=== PATIENT | female | born 1990 | race Caucasian/White ===

== ENCOUNTER 2016-10-08 19:28 | Emergency (ER) | payer OTHER ==
[2016-10-08 20:04] VITALS: PULSE 99; RESP 18
--- NOTE | 2016-10-08 20:35 | ED ---
URI HPI - General Chief Complaint: Upper Respiratory Infection Stated Complaint: Diff breathing Time Seen by Provider: 10/08/16 20:17 Source: patient Mode of arrival: ambulatory Limitations: no limitations - History of Present Illness Initial Comments: 25-year-old female patient presented to emergency department today with complaints of cough and shortness of breath. Patient states that she has been sick with upper respiratory symptoms for the last week. Patient states that she is occasionally wheezy and feels a "rattling" in her chest. She states that she has had chills and sweats, however has not checked her temperature. She states that she has been using her brother's nebulizer with albuterol but it doesn't seem to be helping. Patient states that when she first was sick she did have a sore throat and nasal congestion which has since resolved. She states she was not having clear to white sputum production. States that she has not had any sputum production today, she feels that there but she can't get it up. Patient denies any headache, documented fever, dizziness, weakness, chest pain, abdominal pain, nausea, vomiting, or issues with urination or bowel movements. Denies any sick contacts. Last menstrual period was 2 weeks ago. Denies any chance of . - Related Data Home Medications Medication Instructions Recorded Confirmed Acetaminophen [Tylenol] 500 mg PO ONCE PRN 10/19/15 10/19/15 Previous Rx's Medication Instructions Recorded Albuterol Sulfate [Proair Hfa] 1 - 2 puff INHALATION Q4H PRN #1 10/08/16 inhaler Benzonatate [Tessalon Perles] 200 mg PO Q8H PRN #15 capsule 10/08/16 Allergies Allergy/AdvReac Type Severity Reaction Status Date / Time codeine Allergy Nausea & Verified 10/08/16 20:04 Vomiting Review of Systems ROS Statement: Those systems with pertinent positive or pertinent negative responses have been documented in the HPI. ROS Other: All systems not noted in ROS Statement are negative. Past Medical History Past Medical History: No Reported History History of Any Multi-Drug Resistant Organisms: None Reported Past Surgical History: No Surgical Hx Reported Past Psychological History: Anxiety Smoking Status: Never smoker Past Alcohol Use History: None Reported Past Drug Use History: None Reported General Exam Limitations: no limitations General appearance: alert, in no apparent distress Head exam: Present: atraumatic, normocephalic, normal inspection Eye exam: Present: normal appearance, PERRL, EOMI. Absent: scleral icterus, conjunctival injection, periorbital swelling ENT exam: Present: normal exam, normal oropharynx, mucous membranes moist, TM's normal bilaterally Neck exam: Present: normal inspection. Absent: tenderness, meningismus, lymphadenopathy Respiratory exam: Present: normal lung sounds bilaterally. Absent: respiratory distress, wheezes, rales, rhonchi, stridor Cardiovascular Exam: Present: regular rate, normal rhythm, normal heart sounds. Absent: systolic murmur, diastolic murmur, rubs, gallop, clicks GI/Abdominal exam: Present: soft, normal bowel sounds. Absent: distended, tenderness, guarding, rebound, rigid Extremities exam: Present: normal inspection, full ROM, normal capillary refill. Absent: tenderness, pedal edema, joint swelling, calf tenderness Back exam: Present: normal inspection Neurological exam: Present: alert, oriented X3, CN II-XII intact Psychiatric exam: Present: normal affect, normal mood Skin exam: Present: warm, dry, intact, normal color. Absent: rash Course Vital Signs 10/08/16 20:01 Temperature 96.4 F L Pulse Rate 99 Respiratory 18 Rate Blood Pressure 141/87 O2 Sat by Pulse 97 Oximetry Medical Decision Making - Medical Decision Making 25-year-old male patient presented to emergency department today for evaluation of cough and shortness of breath. Two-view x-ray of the chest was obtained and showed no acute cardiopulmonary process. Patient symptoms are consistent with a viral bronchitis. Patient will be discharged home with a prescription for an albuterol inhaler as well as an antitussive. Patient instructed to follow-up with her primary care physician in one to 2 days for recheck. Instructed to return for any new, worsening, or concerning symptoms. - Radiology Data Radiology results: report reviewed, image reviewed 25-year-old male patient presented with cough and shortness of breath. Two- view x-ray of the chest was obtained and showed no focal airspace opacity, pleural effusion, or pneumothorax. The cardiac silhouette size is within normal limits. The osseous structures are intact. Impression by Dr. Jarvis shows no acute cardiopulmonary process. Disposition Clinical Impression: Viral bronchitis Disposition: HOME SELF-CARE Condition: Good Instructions: Upper Respiratory Infection (ED), Acute Bronchitis (ED) Additional Instructions: Use cough medication as directed. Use inhaler as directed. Follow-up with primary care physician 1-2 days for recheck. Return for any new, worsening, or concerning symptoms. Prescriptions: Albuterol Sulfate [Proair Hfa] 1 - 2 puff INHALATION Q4H PRN #1 inhaler PRN Reason: Wheezing Benzonatate [Tessalon Perles] 200 mg PO Q8H PRN #15 capsule PRN Reason: Cough Referrals: None,Stated [Primary Care Provider] - 1-2 days Time of Disposition: 21:10
--- NOTE | 2016-10-08 20:43 | XR ---
EXAMINATION TYPE: XR chest 2V DATE OF EXAM: 10/08/2016 COMPARISON: 03/23/2007 HISTORY: Cough, chest pain, and shortness of breath. TECHNIQUE: Frontal and lateral views of the chest are obtained. FINDINGS: There is no focal air space opacity, pleural effusion, or pneumothorax seen. The cardiac silhouette size is within normal limits. The osseous structures are intact. IMPRESSION: No acute cardiopulmonary process.
[2016-10-08 21:19] VITALS: BP 129/80; TEMP 99.5
== END 2016-10-08 21:19 | disposition home or self-care (01) ==
LOC: EC 19:28
DX: J20.8 Acute bronchitis due to other specified organisms (principal); Z88.5 Allergy status to narcotic agent
CPT/HCPCS: 71020; 99283

== ENCOUNTER 2018-04-02 05:19 | Emergency (ER) | payer BC ==
--- NOTE | 2018-04-02 05:46 | ED ---
ENT HPI - General Chief complaint: ENT Stated complaint: Weak, Earache, Throat Pain Time Seen by Provider: 04/02/18 05:28 Source: patient, family Mode of arrival: ambulatory Limitations: no limitations - History of Present Illness Initial comments: This patient is a 27-year-old woman who presents to be evaluated for constellation of symptoms. Things began yesterday with sore throat that developed in the morning. She states this was followed shortly thereafter by cough, and then she was experiencing fevers and chills and body aches. She does have a little bit of aching of the ears bilaterally and some mild headache. Patient states that she had taken some [id number]-[id number] flu medication without having much relief, and then she has taken some ibuprofen which also only helped a little bit. complaint: sore throat Onset/Timin -: hour(s) Location: R ear, L ear, throat Severity: moderate Quality: dull Consistency: constant Improves with: none Worsens with: swallowing Associated Symptoms: fever, cough, sore throat - Related Data Previous Rx's Medication Instructions Recorded Promethazine 6.25MG/5Ml [Phenergan 5 ml PO Q4HR PRN #120 ml 04/02/18 Syrup] Allergies Allergy/AdvReac Type Severity Reaction Status Date / Time codeine Allergy Nausea & Verified 04/02/18 05:28 Vomiting Review of Systems ROS Statement: Those systems with pertinent positive or pertinent negative responses have been documented in the HPI. ROS Other: All systems not noted in ROS Statement are negative. Constitutional: Reports: fever, chills ENT: Reports: ear pain, throat pain, congestion. Denies: hearing loss Respiratory: Reports: cough. Denies: dyspnea, wheezes, hemoptysis Cardiovascular: Denies: chest pain, palpitations Gastrointestinal: Denies: abdominal pain, nausea, vomiting, diarrhea Genitourinary: Denies: dysuria, hematuria Musculoskeletal: Denies: back pain Skin: Denies: rash Neurological: Reports: headache Past Medical History Past Medical History: No Reported History History of Any Multi-Drug Resistant Organisms: None Reported Past Surgical History: No Surgical Hx Reported Past Psychological History: Anxiety Smoking Status: Never smoker Past Alcohol Use History: None Reported Past Drug Use History: None Reported General Exam Limitations: no limitations General appearance: alert, in no apparent distress Head exam: Present: atraumatic, normocephalic Eye exam: Present: normal appearance. Absent: scleral icterus, conjunctival injection ENT exam: Present: mucous membranes moist, TM's normal bilaterally, normal external ear exam, other (Cobblestoning of the pharynx. Uvula is midline with no edema) Neck exam: Present: normal inspection, full ROM, lymphadenopathy. Absent: meningismus Respiratory exam: Present: normal lung sounds bilaterally. Absent: respiratory distress, wheezes, rhonchi, stridor Cardiovascular Exam: Present: regular rate, normal rhythm, normal heart sounds GI/Abdominal exam: Present: soft. Absent: distended, tenderness, guarding, mass Extremities exam: Present: normal inspection, normal capillary refill. Absent: pedal edema, calf tenderness Back exam: Present: normal inspection. Absent: CVA tenderness (R), CVA tenderness (L) Neurological exam: Present: alert Skin exam: Present: warm, dry, intact, normal color. Absent: rash Course Vital Signs 04/02/18 05:23 Temperature 100 F H Pulse Rate 133 H Respiratory 20 Rate Blood Pressure 144/86 O2 Sat by Pulse 96 Oximetry Medical Decision Making - Lab Data Lab Results 04/02/18 Range/Units 05:58 Influenza Type A RNA Not Detected (Not Detectd) Influenza Type B (PCR) Not Detected (Not Detectd) Group A Strep Rapid Negative (Negative) Disposition Clinical Impression: Upper respiratory infection Disposition: HOME SELF-CARE Condition: Good Instructions (If sedation given, give patient instructions): Upper Respiratory Infection (ED) Prescriptions: Promethazine 6.25MG/5Ml [Phenergan Syrup] 5 ml PO Q4HR PRN #120 ml PRN Reason: Cough Is patient prescribed a controlled substance at d/c from ED?: No Referrals: None,Stated [Primary Care Provider] - 1-2 days
--- NOTE | 2018-04-02 07:10 | XR ---
EXAM: XR Chest, 2 Views CLINICAL HISTORY: Reason: cough TECHNIQUE: Frontal and lateral views of the chest. COMPARISON: Chest x-ray 10/08/2016 FINDINGS: Lungs: Lungs are clear without focal infiltrates or consolidations. Pleural space: No evidence of pleural effusion or pneumothorax. Heart: Heart size is within normal limits. Mediastinum: Mediastinal structures are unremarkable. Bones/joints: Imaged bony thorax is unremarkable. IMPRESSION: No evidence of acute cardiopulmonary disease.
[2018-04-02] MEDS ORDERED: DEXAMETHASONE 4 MG TAB PO STA (07:12)
[2018-04-02 07:28] VITALS: BP 122/72; PULSE 97; RESP 18; TEMP 98.8
== END 2018-04-02 07:27 | disposition home or self-care (01) ==
LOC: EC 05:19
DX: J06.9 Acute upper respiratory infection, unspecified (principal); Z88.5 Allergy status to narcotic agent
CPT/HCPCS: 71046; 87081; 87430; 87502; 99283

== ENCOUNTER → 2020-11-16 | Outpatient (CLI) | payer BC ==
--- NOTE | 2020-11-16 11:48 | CT ---
EXAMINATION TYPE: CT soft tissue neck w con DATE OF EXAM: 11/16/2020 HISTORY: Pulsatile mass right-sided. COMPARISON: NONE CT DLP: 583.0 mGycm. Automated Exposure Control for Dose Reduction was Utilized. TECHNIQUE: CT scan of the neck is performed with IV Contrast, patient injected with 100 mL of Isovue 300, axial images are obtained, coronal and sagittal reformatted images are reviewed. FINDINGS: Airway: Some symmetric palatine tonsillar prominence. Parotid/submandibular glands: No gross abnormality seen. Carotid/Vascular Structures: There is four vessel origin from aortic arch which is normal variant. Osseous Structures: Slight dextroconvex scoliotic curvature or positioning centered upper thoracic sp ine. Spine somewhat straightened on sagittal images. Other: Sset-ga-evkxehsa mucosal thickening involving the ethmoid and sphenoid sinuses bilaterally. Mi ld mucosal thickening inferior right maxillary sinus. Metallic BB placed at site of palpable abnormality right posterior lateral neck axial image 53 which is at level of the hyoid bone. There are some scattered prominent but subcentimeter lymph nodes throu ghout the neck bilaterally including the posterior cervical spinal fat the level of the metallic BB. No definitive abnormal greater than 1 cm neck adenopathy is identified. No concerning solid or cystic mass or fluid collection is noted throughout the neck including this level of palpable abnormality. IMPRESSION: No suspicious mass or greater than 1 cm adenopathy.
== END | disposition home or self-care (01) ==
LOC: RADCTMAIN 08:33
PROVIDERS: ATTEND Family Medicine
DX: R22.1 Localized swelling, mass and lump, neck (principal)
CPT/HCPCS: 70491; Q9967

== ENCOUNTER 2021-02-15 17:13 | Emergency (ER) | payer BC ==
[2021-02-15 17:30] VITALS: RESP 18; TEMP 99.3
[2021-02-15] MEDS ORDERED: SODIUM CHLORIDE 0.9% 1,000 ML IV STA (18:39)
--- NOTE | 2021-02-15 18:41 | ED ---
General Adult HPI - General Chief complaint: Recheck/Abnormal Lab/Rx Stated complaint: HBP-16 weeks preg. Time Seen by Provider: 02/15/21 18:28 Source: patient Mode of arrival: ambulatory Limitations: no limitations - History of Present Illness Initial comments: 30-year-old female currently 16 weeks presents for high blood pressure. Patient states she checked her blood pressure at home and she can't remember exactly what it was but at one point the systolic was 160 and then later was 140. Patient states that she feels some slight pressure in her face and this is what caused her to check her blood pressure. Patient states she called her FILM PROCESSING SUPERVISOR who told her to come to the emergency room.patient states she did have high blood pressure at one point but does not take any medication. Patient does have a confirmed IUP by ultrasound outpatient Patient has no other complaints at this time including shortness of breath, chest pain, abdominal pain, nausea or vomiting, headache, or visual changes. - Related Data Previous Rx's Medication Instructions Recorded Promethazine 6.25MG/5Ml [Phenergan 5 ml PO Q4HR PRN #120 ml 04/02/18 Syrup] Allergies Allergy/AdvReac Type Severity Reaction Status Date / Time codeine Allergy Nausea & Verified 02/15/21 17:29 Vomiting Review of Systems ROS Statement: Those systems with pertinent positive or pertinent negative responses have been documented in the HPI. ROS Other: All systems not noted in ROS Statement are negative. Past Medical History Past Medical History: No Reported History History of Any Multi-Drug Resistant Organisms: None Reported Past Surgical History: No Surgical Hx Reported Past Psychological History: Anxiety Smoking Status: Never smoker Past Alcohol Use History: None Reported Past Drug Use History: None Reported General Exam Limitations: no limitations General appearance: alert, in no apparent distress Head exam: Present: atraumatic Eye exam: Present: normal appearance, PERRL, EOMI. Absent: scleral icterus, conjunctival injection ENT exam: Present: normal exam, mucous membranes moist Neck exam: Present: normal inspection, full ROM. Absent: tenderness Respiratory exam: Present: normal lung sounds bilaterally. Absent: respiratory distress, wheezes Cardiovascular Exam: Present: regular rate, normal rhythm, normal heart sounds GI/Abdominal exam: Present: soft, normal bowel sounds. Absent: distended, tenderness Course Vital Signs 02/15/21 02/15/21 02/15/21 17:26 20:19 20:55 Temperature 99.3 F Pulse Rate 87 77 Respiratory 18 18 Rate Blood Pressure 138/86 129/72 O2 Sat by Pulse 99 99 Oximetry Medical Decision Making - Medical Decision Making Vitals are stable. Patient mildly hypertensive upon arrival with a blood pressure 138/86. Fluids given. CBC CMP unremarkable. Uric acid is normal as well as magnesium. Urinalysis showed trace protein however patient states that her FILM PROCESSING SUPERVISOR is aware of trace proteins in her urine as this has been evident in the past. COVID-19 negative. Patient reevaluated, repeat blood pressure is 129/72. At this point patient is stable for outpatient management. She will follow up with her FILM PROCESSING SUPERVISOR tomorrow morning. She will return here for any worsening symptoms. - Lab Data Result diagrams: 02/15/21 18:43 02/15/21 18:43 Lab Results 02/15/21 02/15/21 02/15/21 Range/Units 18:43 18:43 18:43 WBC 12.9 H (3.8-10.6) k/uL RBC 4.76 (3.80-5.40) m/uL Hgb 13.3 (11.4-16.0) gm/dL Hct 40.8 (34.0-46.0) % MCV 85.6 (80.0-100.0) fL MCH 27.9 (25.0-35.0) pg MCHC 32.6 (31.0-37.0) g/dL RDW 15.5 (11.5-15.5) % Plt Count 269 (150-450) k/uL MPV 7.1 Neutrophils % 76 % Lymphocytes % 19 % Monocytes % 3 % Eosinophils % 1 % Basophils % 0 % Neutrophils # 9.8 H (1.3-7.7) k/uL Lymphocytes # 2.5 (1.0-4.8) k/uL Monocytes # 0.4 (0-1.0) k/uL Eosinophils # 0.1 (0-0.7) k/uL Basophils # 0.0 (0-0.2) k/uL Sodium 135 L (137-145) mmol/L Potassium 3.6 (3.5-5.1) mmol/L Chloride 102 (98-107) mmol/L Carbon Dioxide 21 L (22-30) mmol/L Anion Gap 12 mmol/L BUN 9 (7-17) mg/dL Creatinine 0.56 (0.52-1.04) mg/dL Est GFR (CKD-EPI)AfAm >90 (>60 ml/min/1.73 sqM) Est GFR (CKD-EPI)NonAf >90 (>60 ml/min/1.73 sqM) Glucose 124 H (74-99) mg/dL Uric Acid 4.1 (3.7-7.4) mg/dL Calcium 9.3 (8.4-10.2) mg/dL Magnesium 1.8 (1.6-2.3) mg/dL Total Bilirubin 0.3 (0.2-1.3) mg/dL AST 22 (14-36) U/L ALT 31 (4-34) U/L Alkaline Phosphatase 62 (38-126) U/L Lactate Dehydrogenase 375 (313-618) U/L Total Protein 7.2 (6.3-8.2) g/dL Albumin 3.9 (3.5-5.0) g/dL Urine Color Yellow Urine Appearance Cloudy H (Clear) Urine pH 5.5 (5.0-8.0) Ur Specific [place] 1.027 (1.001-1.035) Urine Protein Trace H (Negative) Urine Glucose (UA) Negative (Negative) Urine Ketones 2+ H (Negative) Urine Blood Negative (Negative) Urine Nitrite Negative (Negative) Urine Bilirubin Negative (Negative) Urine Urobilinogen <2.0 (<2.0) mg/dL Ur Leukocyte Esterase Moderate H (Negative) Urine RBC 1 (0-5) /hpf Urine WBC 4 (0-5) /hpf Ur Squamous Epith Cells 11 H (0-4) /hpf Urine Bacteria Few H (None) /hpf Urine Mucus Many H (None) /hpf Coronavirus (PCR) (Not Detectd) 02/15/21 Range/Units 19:16 WBC (3.8-10.6) k/uL RBC (3.80-5.40) m/uL Hgb (11.4-16.0) gm/dL Hct (34.0-46.0) % MCV (80.0-100.0) fL MCH (25.0-35.0) pg MCHC (31.0-37.0) g/dL RDW (11.5-15.5) % Plt Count (150-450) k/uL MPV Neutrophils % % Lymphocytes % % Monocytes % % Eosinophils % % Basophils % % Neutrophils # (1.3-7.7) k/uL Lymphocytes # (1.0-4.8) k/uL Monocytes # (0-1.0) k/uL Eosinophils # (0-0.7) k/uL Basophils # (0-0.2) k/uL Sodium (137-145) mmol/L Potassium (3.5-5.1) mmol/L Chloride (98-107) mmol/L Carbon Dioxide (22-30) mmol/L Anion Gap mmol/L BUN (7-17) mg/dL Creatinine (0.52-1.04) mg/dL Est GFR (CKD-EPI)AfAm (>60 ml/min/1.73 sqM) Est GFR (CKD-EPI)NonAf (>60 ml/min/1.73 sqM) Glucose (74-99) mg/dL Uric Acid (3.7-7.4) mg/dL Calcium (8.4-10.2) mg/dL Magnesium (1.6-2.3) mg/dL Total Bilirubin (0.2-1.3) mg/dL AST (14-36) U/L ALT (4-34) U/L Alkaline Phosphatase (38-126) U/L Lactate Dehydrogenase (313-618) U/L Total Protein (6.3-8.2) g/dL Albumin (3.5-5.0) g/dL Urine Color Urine Appearance (Clear) Urine pH (5.0-8.0) Ur Specific [place] (1.001-1.035) Urine Protein (Negative) Urine Glucose (UA) (Negative) Urine Ketones (Negative) Urine Blood (Negative) Urine Nitrite (Negative) Urine Bilirubin (Negative) Urine Urobilinogen (<2.0) mg/dL Ur Leukocyte Esterase (Negative) Urine RBC (0-5) /hpf Urine WBC (0-5) /hpf Ur Squamous Epith Cells (0-4) /hpf Urine Bacteria (None) /hpf Urine Mucus (None) /hpf Coronavirus (PCR) Not Detected (Not Detectd) Disposition Clinical Impression: History of hypertension Disposition: HOME SELF-CARE Condition: Good Instructions (If sedation given, give patient instructions): Hypertension (ED) Additional Instructions: Please follow up with your obgyn. Return to the ER for any worsening symptoms. Is patient prescribed a controlled substance at d/c from ED?: No Referrals: Neeta Alvarez DO [Primary Care Provider] - 1-2 days Time of Disposition: 20:34
[2021-02-15 19:11] LABS: Basophils % (A) 0 %; Eosinophils # (A) 0.1 k/uL (0-0.7); Eosinophils % (A) 1 %; HCT 40.8 % (34.0-46.0); HGB 13.3 gm/dL (11.4-16.0); Lymphocytes # (A) 2.5 k/uL (1.0-4.8); Lymphocytes % (A) 19 %; MCH 27.9 pg (25.0-35.0); MCHC 32.6 g/dL (31.0-37.0); MCV 85.6 fL (80.0-100.0); Mean Platelet Volume 7.1; Monocytes # (A) 0.4 k/uL (0-1.0); Monocytes % (A) 3 %; Neutrophils # (A) 9.8 k/uL (1.3-7.7); Neutrophils % (A) 76 %; Platelet Count 269 k/uL (150-450); RBC 4.76 m/uL (3.80-5.40); RDW 15.5 % (11.5-15.5); WBC 12.9 k/uL (3.8-10.6)
[2021-02-15 19:24] LABS: ALT 31 U/L (4-34); AST 22 U/L (14-36); African American GFR (CKD) >90 (>60 ml/min/1.73 sqM); Albumin 3.9 g/dL (3.5-5.0); Alkaline Phosphatase 62 U/L (38-126); Anion Gap 12 mmol/L; Blood Urea Nitrogen 9 mg/dL (7-17); Calcium 9.3 mg/dL (8.4-10.2); Carbon Dioxide 21 mmol/L (22-30); Chloride 102 mmol/L (98-107); Glucose 124 mg/dL (74-99); LDH 375 U/L (313-618); Magnesium 1.8 mg/dL (1.6-2.3); Non-African American GFR(CKD) >90 (>60 ml/min/1.73 sqM); Potassium 3.6 mmol/L (3.5-5.1); Sodium 135 mmol/L (137-145); Total Bilirubin 0.3 mg/dL (0.2-1.3); Total Protein 7.2 g/dL (6.3-8.2); Uric Acid 4.1 mg/dL (3.7-7.4)
[2021-02-15 19:40] LABS: Appearance,Urine Cloudy (Clear); Bacteria,Urine Few /hpf; Bilirubin,Urine Negative (Negative); Blood,Urine Negative (Negative); Color,Urine Yellow; Glucose,Urine (UA) Negative (Negative); Ketones,Urine 2+ (Negative); Leukocyte Esterase,Urine Moderate (Negative); Mucus,Urine Many /hpf; Nitrite,Urine Negative (Negative); PH, Urine 5.5 (5.0-8.0); Protein,Urine Trace (Negative); RBC,Urine 1 /hpf (0-5); Specific Gravity,Urine 1.027 (1.001-1.035); Squamous Epithelial Cell,Urine 11 /hpf (0-4); Urobilinogen,Urine <2.0 mg/dL (<2.0); WBC,Urine 4 /hpf (0-5)
[2021-02-15 20:20] VITALS: BP 129/72
[2021-02-15 20:56] VITALS: PULSE 77
== END 2021-02-15 20:55 | disposition home or self-care (01) ==
LOC: EC 17:13
DX: O13.2 Gestational [pregnancy-induced] hypertension without significant proteinuria, second trimester (principal); Z3A.16 16 weeks gestation of pregnancy; Z20.822 Contact with and (suspected) exposure to COVID-19
CPT/HCPCS: 36415; 80053; 81001; 83615; 83735; 84550; 85025; 87635; 99283

== ENCOUNTER 2021-07-04 13:24 | Outpatient (CLI) | payer BC ==
[2021-07-04 15:58] LABS: Basophils % (A) 0 %; Eosinophils % (A) 0 %; HCT 38.4 % (34.0-46.0); HGB 12.4 gm/dL (11.4-16.0); Hypochromasia Slight; Lymphocytes # (A) 2.1 k/uL (1.0-4.8); Lymphocytes % (A) 18 %; MCH 30.3 pg (25.0-35.0); MCHC 32.3 g/dL (31.0-37.0); MCV 93.7 fL (80.0-100.0); Mean Platelet Volume 7.8; Monocytes # (A) 0.4 k/uL (0-1.0); Monocytes % (A) 4 %; Neutrophils # (A) 9.2 k/uL (1.3-7.7); Neutrophils % (A) 76 %; Platelet Count 190 k/uL (150-450); RBC 4.09 m/uL (3.80-5.40); WBC 12.1 k/uL (3.8-10.6)
[2021-07-04 17:36] VITALS: PULSE 93; RESP 15; TEMP 96.8
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
== END 2021-07-04 17:37 | disposition home or self-care (01) ==
LOC: FBPOP 13:24
PROVIDERS: ATTEND Obstetrics & Gynecology
DX: Z04.1 Encounter for examination and observation following transport accident (principal); Z88.5 Allergy status to narcotic agent
CPT/HCPCS: 59025; 85025; 99213

== ENCOUNTER 2021-07-27 05:43 | Inpatient (IN) | payer BC ==
--- NOTE | 2021-07-26 18:17 | P.HPOB ---
History of Present Illness H&P Date: 07/26/21 Chief Complaint: Induction of labor This is a 30-year-old female 1 para 0 with an estimated date of confinement of 08/02/2021, estimated gestational age of 39-0/7 weeks who presents to labor and delivery for induction of labor. She did have a recent ultrasound that showed an estimated weight of 8 lbs. 5 oz. at greater than 90th percentile and she is concerned about the baby getting too big to deliver. She has been feeling more irregular contractions. She does complain of swelling in her hands and her feet. course has been otherwise uncomplicated. Dr. Branham has agreed to care for the patient during this admission in my absence. 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 She is single. Review of Systems Constitutional: Denies chills, Denies fever Eyes: denies blurred vision, denies pain Ears, nose, mouth and throat: Reports headache (Occasional), Denies sore throat Cardiovascular: Denies chest pain, Denies shortness of breath Respiratory: Denies cough Gastrointestinal: Reports abdominal pain (Irregular contractions) Genitourinary: Reports pelvic pain, Reports Musculoskeletal: Reports low back pain Musculoskeletal: bilateral: foot swelling, hand swelling Integumentary: Denies pruritus, Denies rash Neurological: Denies numbness, Denies weakness Psychiatric: Denies anxiety, Denies depression Past Medical History Past Medical History: No Reported History History of Any Multi-Drug Resistant Organisms: None Reported Past Surgical History: No Surgical Hx Reported Past Anesthesia/Blood Transfusion Reactions: No Reported Reaction Past Psychological History: No Psychological Hx Reported Smoking Status: Never smoker Past Alcohol Use History: None Reported Past Drug Use History: None Reported - Past Family History Mother Family Medical History: Hypertension Medications and Allergies Home Medications Medication Instructions Recorded Confirmed Type Pnv No.95/Ferrous Fum/Folic AC 1 tab PO DAILY 07/04/21 07/04/21 History [ Multivitamin Tablet] Allergies Allergy/AdvReac Type Severity Reaction Status Date / Time codeine Allergy Nausea & Verified 02/15/21 17:29 Vomiting Exam Osteopathic Statement: *. No significant issues noted on an osteopathic structural exam other than those noted in the History and Physical/Consult. HEENT: Within normal limits Heart: Regular rate and rhythm Lungs: Clear to auscultation bilaterally Abdomen: fundal height of 41 cm heart tones: 140s by Doppler Cervix: 2-1/2 cm/70%/-2 station Extremities: 1+ pitting edema in lower extremities and hands. Assessment and Plan (1) 39 weeks gestation of Status: Acute Code(s): Z3A.39 - 39 WEEKS GESTATION OF SNOMED Code(s): 38090400 (2) Group B Streptococcus carrier, +RV culture, currently Status: Acute Code(s): O99.820 - STREPTOCOCCUS B CARRIER STATE COMPLICATING SNOMED Code(s): 8095138228711 Plan: Proceed with oxytocin induction of labor. Antibiotic prophylaxis for group B streptococcus. Expectant management.
[2021-07-27] MEDS ORDERED: AMPICILLIN 2,000 MG in SODIUM CHLORIDE 0.9% 100 ML IVPB STA (06:00)
[2021-07-27] MEDS ORDERED: OXYTOCIN 10 UNIT/ML 1 ML VIAL IM PRN (06:03)
[2021-07-27] MEDS ORDERED: TERBUTALINE 1 MG/ML VIAL SQ PRN (06:03)
[2021-07-27] MEDS ORDERED: OXYTOCIN 30 UNITS/500 ML NS 30 UNIT in SALINE 1 500ML.BAG IV SCH ×2 (06:03→16:45)
[2021-07-27] MEDS ORDERED: CARBOPROST TROMETHAMINE 250 MCG/ML 1 ML AMP IM PRN (06:03)
[2021-07-27] MEDS ORDERED: METHYLERGONOVINE 0.2 MG/ML 1 ML AMP IM PRN (06:03)
[2021-07-27] MEDS ORDERED: LIDOCAINE 0.5% (PF) 5 MG/ML (50 ML SDV) SQ PRN (06:03)
[2021-07-27] MEDS ORDERED: LIDOCAINE 1% (10MG/ML) FOR IV START INTRADERMA PRN (06:03)
[2021-07-27] MEDS: LACTATED RINGERS 1,000 ML IV SCH ×2 (06:28→14:44)
[2021-07-27 06:51] LABS: Basophils # (A) 0.1 k/uL (0-0.2); Basophils % (A) 1 %; Eosinophils # (A) 0.1 k/uL (0-0.7); Eosinophils % (A) 0 %; HCT 40.5 % (34.0-46.0); HGB 12.8 gm/dL (11.4-16.0); Lymphocytes # (A) 1.7 k/uL (1.0-4.8); Lymphocytes % (A) 15 %; MCH 28.6 pg (25.0-35.0); MCHC 31.7 g/dL (31.0-37.0); MCV 90.3 fL (80.0-100.0); Mean Platelet Volume 8.6; Monocytes # (A) 0.5 k/uL (0-1.0); Monocytes % (A) 5 %; Neutrophils # (A) 8.7 k/uL (1.3-7.7); Neutrophils % (A) 78 %; Platelet Count 212 k/uL (150-450); RBC 4.48 m/uL (3.80-5.40); RDW 14.5 % (11.5-15.5); WBC 11.2 k/uL (3.8-10.6)
[2021-07-27] MEDS ORDERED: BUTORPHANOL 1 MG/ML 1 ML VIAL IV PRN (09:16)
[2021-07-27] MEDS: AMPICILLIN 1,000 MG in SODIUM CHLORIDE 0.9% 50 ML IVPB SCH ×2 (10:40→14:38)
[2021-07-27] MEDS ORDERED: BENZOCAINE/MENTHOL SPRAY 1 GM/SPRAY AEROSOL TOPICAL PRN (16:42)
[2021-07-27] MEDS ORDERED: diphenhydrAMINE 50 MG CAP PO PRN (16:42)
[2021-07-27] MEDS ORDERED: ZOLPIDEM 5 MG TAB PO PRN (16:42)
[2021-07-27] MEDS ORDERED: diphenhydrAMINE 25 MG CAP PO PRN (16:42)
[2021-07-27] MEDS ORDERED: HYDROCORTISONE 2.5% RECTAL CREAM 30 GM TUBE RECTAL PRN (16:42)
[2021-07-27] MEDS ORDERED: LANOLIN CREAM 5 GM TUBE TOPICAL PRN (16:42)
[2021-07-27] MEDS ORDERED: diphenhydrAMINE 50 MG/ML 1 ML VIAL IVP PRN ×2 (16:42)
[2021-07-27] MEDS ORDERED: SIMETHICONE 80 MG CHEWABLE PO PRN (16:42)
--- NOTE | 2021-07-27 16:45 | P.PROBDLV ---
Vaginal Delivery Note - . Vaginal Delivery Note: This is a 30-year-old female 1 para 0 with an estimated date of confinement of 08/02/2021, estimated gestational age of 39-0/7 weeks who presents to labor and delivery for induction of labor. Her cervix is 3 centers dilated, 70% effaced, and -1 station. She is christa irregularly. heart tones 130 with moderate variability and reactive. Pitocin augmentation was started and amniotomy performed a little after 8 AM, clear fluid noted. When she was uncomfortable she did get an epidural. Her cervix was completely dilated at 1516. She pushed, and delivered a viable male over midline episiotomy under epidural anesthesia. Head delivered OA, anterior shoulder delivered gentle downward guidance followed by posterior shoulder and rest of body. Nose and mouth bulb suctioned, cord clamped and cut, placed on mother's abdomen. Apgars 9, 9, weight 8 pounds 6.6 ounces. Placenta delivered spontaneously, intact with three-vessel cord at 1623. Vagina, cervix, perineum inspected. Second-degree midline laceration was repaired with 3-0 Vicryl and 2- 0 Vicryl. Estimated blood loss 250 mL mother and baby in stable condition.
[2021-07-27] MEDS: IBUPROFEN 600 MG TAB PO PRN (17:18)
[2021-07-27 18:44] VITALS: RESP 16
[2021-07-27] MEDS ORDERED: SENNOSIDES-DOCUSATE SODIUM 1 EACH TAB PO SCH (20:00)
[2021-07-27] MEDS: ACETAMINOPHEN TAB 325 MG TAB PO PRN (21:02)
[2021-07-28] MEDS: IBUPROFEN 600 MG TAB PO PRN ×2 (05:19→17:46)
[2021-07-28] MEDS ORDERED: Rhogam IMMUNE GLOBULIN 1,500 UNIT/1 ML IM ONE (05:46)
--- NOTE | 2021-07-28 08:11 | P.DS ---
Providers Date of admission: 07/27/21 05:43 Expected date of discharge: 07/28/21 Attending physician: Antonietta Branham Primary care physician: Stated None - Discharge Diagnosis(es) (1) Normal vaginal delivery Current Visit: Yes Status: Acute Hospital Course: She presented for induction of labor. She underwent a normal vaginal delivery. course was uncomplicated. She denies nausea, vomiting, chest pain, shortness of breath or any calf pain. Patient would be discharged home day #1 in stable condition to follow-up with me in 6 weeks. Plan - Discharge Summary New Discharge Prescriptions: New Ibuprofen [Motrin] 600 mg PO Q6HR PRN #30 tab PRN Reason: Mild Pain (Scale 1 To 3) No Action Pnv No.95/Ferrous Fum/Folic AC [ Multivitamin Tablet] 1 tab PO DAILY Cyanocobalamin (Vitamin B-12) [Vitamin B12] 5,000 mcg PO DAILY Cholecalciferol (Vitamin D3) [Vitamin D3 (3000 Iu)] 75 mcg PO DAILY Discharge Medication List Pnv No.95/Ferrous Fum/Folic AC [ Multivitamin Tablet] 1 tab PO DAILY 07/04/21 [History] Cholecalciferol (Vitamin D3) [Vitamin D3 (3000 Iu)] 75 mcg PO DAILY 07/27/21 [History] Cyanocobalamin (Vitamin B-12) [Vitamin B12] 5,000 mcg PO DAILY 07/27/21 [History] Ibuprofen [Motrin] 600 mg PO Q6HR PRN #30 tab 07/28/21 [Rx] Follow up Appointment(s)/Referral(s): Antonietta Branham DO [Doctor of Osteopathic Medicine] - 09/11/21 11:30 am (Actually should f/u with Dr Watson for her pp visit. will call with visit time) Discharge Disposition: HOME SELF-CARE
[2021-07-28 08:16] LABS: Basophils % (A) 0 %; Eosinophils % (A) 0 %; HCT 35.1 % (34.0-46.0); HGB 11.1 gm/dL (11.4-16.0); Lymphocytes # (A) 1.9 k/uL (1.0-4.8); Lymphocytes % (A) 16 %; MCH 29.2 pg (25.0-35.0); MCHC 31.6 g/dL (31.0-37.0); MCV 92.3 fL (80.0-100.0); Mean Platelet Volume 8.3; Monocytes # (A) 0.5 k/uL (0-1.0); Monocytes % (A) 4 %; Neutrophils # (A) 9.6 k/uL (1.3-7.7); Neutrophils % (A) 78 %; Platelet Count 187 k/uL (150-450); RBC 3.81 m/uL (3.80-5.40); RDW 14.7 % (11.5-15.5); WBC 12.2 k/uL (3.8-10.6)
[2021-07-28] MEDS: ACETAMINOPHEN TAB 325 MG TAB PO PRN (09:33)
[2021-07-28] MEDS ORDERED: MEASLES-MUMPS-RUBELLA VACC/PF 12,500 UNIT/0.5 ML VIAL SQ ONE (10:26)
[2021-07-28 17:25] VITALS: BP 123/77; PULSE 67; TEMP 98.6
== END 2021-07-28 17:50 | disposition home or self-care (01) | DRG 807 ==
LOC: 4FBP 05:43
PROVIDERS: ADMIT Obstetrics & Gynecology; ATTEND Obstetrics & Gynecology
PROC: 10E0XZZ Delivery of Products of Conception, External Approach (ICD-10-PCS; principal; 2021-07-27)
PROC: 0W8NXZZ Division of Female Perineum, External Approach (ICD-10-PCS; 2021-07-27)
PROC: 10907ZC Drainage of Amniotic Fluid, Therapeutic from Products of Conception, Via Natural or Artificial Opening (ICD-10-PCS; 2021-07-27)
PROC: 3E033VJ Introduction of Other Hormone into Peripheral Vein, Percutaneous Approach (ICD-10-PCS; 2021-07-27)
DX: O99.824 Streptococcus B carrier state complicating childbirth (principal); Z37.0 Single live birth; Z3A.39 39 weeks gestation of pregnancy; Z88.5 Allergy status to narcotic agent
CPT/HCPCS: 85025; 85461; 86850; 86900; 86901; 90707

== ENCOUNTER → 2024-09-23 | Outpatient (CLI) | payer OTHER ==
[2024-09-23 14:05] VITALS: BP 119/81; PULSE 82; RESP 16; TEMP 98.4
--- NOTE | 2024-09-23 14:19 | P.SLEEP ---
History of Present Illness DATE: 09/23/2024 CONSULTATION/NEW PATIENT EVALUATION HISTORY OF PRESENT ILLNESS/SLEEP-WAKE EVALUATION: 33-year-old lady had been e valuated in the sleep center for possible obstructive sleep apnea hypopnea syndrome. SLEEP SCHEDULE: Usually sleep schedule from 10 PM to 7 AM. FALLING ASLEEP: Patient does have problems with falling asleep, has TV set in bedroom. DURING SLEEP: Patient usually sleeps on the side and stomach position with snoring and awakenings from sleep several times with possible 1 episode of nocturia. No history of hypnogogical hallucinations, sleep paralysis, or cataplexy. DURING THE DAY/WAKE STATE: In the morning patient wake up tired, has difficulties to pay attention, has problems with memory, concentration, depression and anxiety episodes. [place] sleepiness scale is 4. Usually patient does not take naps. PAST MEDICAL HISTORY: Hypertrophy of tonsils. PAST SURGICAL HISTORY: None. MEDICATIONS: Please see below. SOCIAL HISTORY: Please see below. FAMILY HISTORY: Please see below. REVIEW OF SYSTEMS: Snoring, memory problems. No fevers. No double vision. No recent chest pain. No shortness of breath. No abdominal pain. No bleeding episodes. No blood in urine. No seizure episodes. PHYSICAL EXAMINATION: GENERAL: A pleasant patient without any distress. VITAL SIGNS: Please see below, weight 261 pounds, BMI 42.1. HEENT: PERRLA, EOMI. Evaluation of oropharynx showed tongue protrudes midline, low position of soft palate Mallampati 23, significant hypertrophy of tonsil on the right side. NECK: Supple. No JVD. Thyroid is not palpable. 15-1/4 inches in circumference. LUNGS: Clear to percussion and to auscultation. Good air exchange. No wheezing or rhonchi. HEART: S1, S2 regular. No murmurs, gallops or rubs. ABDOMEN: Soft and nontender. Bowel sounds are present. No organomegaly appreciated. EXTREMITIES: No clubbing or cyanosis. RESERVATIONS MANAGER: Awake, alert, and oriented x3. Cranial nerves 2 to 7 intact. There is no fasciculation or atrophy noted. No focal deficits observed. ASSESSMENT: 1. Snoring, multiple awakenings from sleep, small oropharyngeal airspace secondary to hypertrophy of tonsils. Obstructive sleep apnea hypopnea syndrome. 2. Obesity, BMI 42.1. 3. Hypertrophy of tonsils especially on the right side. 4. Episodes of depression and anxiety. PLAN: 1. Polysomnography for evaluation of patient's breathing during sleep. 2. Following plan after reading sleep study. 3. Preferable position during sleep on the side. 4. No driving if patient feels any sleepiness. Patient is aware of civil and criminal liability for unsafe driving. 5. Sleep hygiene with regular sleep time for at least 7.5-8 hours. 6. Watching and losing weight. Thank you very much for referring this patient for consultation. Sincerely, Malick Queen MD, PhD, FAASM. Diplomat of [place] [employer], Sleep Medicine Board by [employer] [facility] [place] cc: Maye Vargas MD Past Medical History Past Medical History: No Reported History History of Any Multi-Drug Resistant Organisms: None Reported Past Surgical History: No Surgical Hx Reported Past Anesthesia/Blood Transfusion Reactions: No Reported Reaction Past Psychological History: Depression Smoking Status: Never smoker Past Alcohol Use History: None Reported Past Drug Use History: None Reported - Past Family History Mother Family Medical History: Coronary Artery Disease (CAD), Hypertension Additional Family Medical History / Comment(s): Heart disease runs "in her moms side", mental illness Medications and Allergies Home Medications Medication Instructions Recorded Confirmed Type Pnv No.95/Ferrous Fum/Folic AC 1 tab PO DAILY 07/04/21 07/27/21 History [ Multivitamin Tablet] Cholecalciferol (Vitamin D3) 75 mcg PO DAILY 07/27/21 07/27/21 History [Vitamin D3 (3000 Iu)] Cyanocobalamin (Vitamin B-12) 5,000 mcg PO DAILY 07/27/21 07/27/21 History [Vitamin B12] Ibuprofen [Motrin] 600 mg PO Q6HR PRN #30 tab 07/28/21 Rx Semaglutide [Wegovy] 0.5 mg INJ WEEKLY 09/23/24 09/23/24 History Allergies Allergy/AdvReac Type Severity Reaction Status Date / Time No Known Allergies Allergy Verified 07/27/21 06:02 Physical Exam Vitals: Vital Signs Temp Pulse Resp BP Pulse Ox 09/23/24 14:04 98.4 F 82 16 119/81 98 Intake and Output 09/22/24 09/23/24 09/23/24 22:59 06:59 14:59 Other: Weight 118.388 kg Sleep Note - Sleep Data ESS Total: 4 - Sleep Note Sleep Note: Temperature: 98.4 F Pulse Rate: 82 Respiratory Rate: 16 Blood Pressure: 119/81 SpO2: 98 Height: 5 ft 6 in Weight: 118.388 kg BMI: Neck Circumference: 15.2
== END ==
LOC: 3 N SLEEP 13:49
PROVIDERS: ATTEND Internal Medicine
DX: G47.33 Obstructive sleep apnea (adult) (pediatric) (principal); E66.9 Obesity, unspecified; J35.1 Hypertrophy of tonsils; F32.A Depression, unspecified; F41.9 Anxiety disorder, unspecified; Z68.41 Body mass index [BMI] 40.0-44.9, adult
CPT/HCPCS: 99211

== ENCOUNTER 2024-10-01 19:31 | Outpatient (CLI) | payer OTHER ==
--- NOTE | 2024-10-14 17:13 | P.PCN ---
Description of Procedure: POLYSOMNOGRAPHY REPORT PROCEDURE(S)/DATE(S): Polysomnography 10/01/2024 CLINICAL: Patient has been seen in the sleep center for evaluation of obstructive sleep apnea-hypopnea syndrome. Please see my consultation. Sleep study has been done for evaluation of patient breathing during the sleep. PROCEDURE: The standard montage for clinical polysomnography included the electroencephalogram, the electrooculogram, the mentalis surface electromyography and Lead II cardiography. The respiratory battery consisted of measurements of nasal/buccal air flow, pressure transducer measurements from nose, thoracic and/or abdominal effort and intercostal surface electromyography. Video monitoring has been done to check for any parasomnia events. Nocturnal oxyhemoglobin saturations were obtained by finger oximetry. Step-arciniega titration with positive airway pressure was utilized to control the respiratory events, if necessary. RESULTS: During the diagnostic sleep study sleep efficiency was in high range 95.9%. Latency to sleep onset was short 4.0 min. Sleep architecture showed stage NI for 202.7%, Delta sleep was short 3.5%, REM sleep was borderline to normal 19.6%. Respiratory channel showed 19 obstructive apneas, 1 mixed apneas, 4 central apneas, 26 hypopneas with lowest oxygen level 87%. Total apnea hypopnea index was 7.7. Heart rate was in the range between 68 and 81, average 74. EMG showed 0 periodic limb movements per hour. IMPRESSIONS: 1. Obstructive sleep apnea hypopnea syndrome in mild range. 2. No significant periodic limb movements have been documented. 3. Hypertrophy of tonsils. 4. Obesity, BMI 42.1. 5. Loud snoring. Please see other impressions from consultation PLAN: 1. Consider evaluation by ear nose and throat physician. 2. Losing weight program. 3. Sleep hygiene with regular time in bed for at least 7-1/2 hours. 4. No driving if feeling sleepiness. Thank you very much for allowing me to participate in the management of your patient. Sincerely, Malick Queen MD, PhD, FAASM. Diplomat of [place] [employer], Sleep Medicine Board by [place] [employer] [facility] [place]
== END 2024-10-02 06:00 | disposition home or self-care (01) ==
LOC: 3 N SLEEP 19:31
PROVIDERS: ATTEND Internal Medicine
DX: G47.33 Obstructive sleep apnea (adult) (pediatric) (principal); J35.1 Hypertrophy of tonsils; E66.9 Obesity, unspecified; Z68.41 Body mass index [BMI] 40.0-44.9, adult
CPT/HCPCS: 95810